=== PATIENT | male | born 1960 | race Caucasian/White ===

== ENCOUNTER → 2017-09-02 | Outpatient (CLI) | payer BC ==
--- NOTE | 2017-09-02 13:05 | XR ---
EXAMINATION TYPE: XR knee complete LT DATE OF EXAM: 09/02/2017 CLINICAL HISTORY: Nontraumatic increasing left knee pain TECHNIQUE: Three views of the left knee are obtained. COMPARISON: None. FINDINGS: There is no acute fracture/dislocation evident in left knee. There is tricompartmental mary kate nt space narrowing, medial compartment tibial plateau sclerosis, and tricompartmental osteophytes. Fa marry is incidentally noted. The overlying soft tissue appears unremarkable. IMPRESSION: There is no acute fracture or dislocation in the left knee. Moderate to severe tricompar tmental arthropathy.
== END ==
LOC: RADXRYALE 09:37
PROVIDERS: ATTEND Physician Assistant
DX: M17.12 Unilateral primary osteoarthritis, left knee (principal)

== ENCOUNTER → 2020-02-18 | Outpatient (CLI) | payer OTHER | END | disposition home or self-care (01) | LOC: LABWHC1 10:01 | PROVIDERS: ATTEND Physician Assistant | DX: Z20.828 Contact with and (suspected) exposure to other viral communicable diseases (principal) | CPT/HCPCS: U0003; C9803 ==

== ENCOUNTER → 2023-03-25 | Outpatient (CLI) | payer BC ==
[2023-03-25 09:09] LABS: Partial Thromboplastin Time 24.9 sec (22.0-30.0); Prothrombin Time 11.3 sec (10.0-12.5)
[2023-03-25 15:45] LABS: Basophils # (A) 0.06 X 10*3/uL (0.00-0.10); Basophils % (A) 0.6 %; Eosinophils # (A) 0.28 X 10*3/uL (0.04-0.35); HCT 45.1 % (39.6-50.0); HGB 14.9 g/dL (13.0-17.0); Lymphocytes # (A) 2.89 X 10*3/uL (0.90-5.00); Lymphocytes % (A) 30.8 %; MCH 30.6 pg (27.0-32.0); MCV 92.6 FL (80.0-97.0); Mean Platelet Volume 11.4 FL (9.5-12.2); Monocytes # (A) 0.75 X 10*3/uL (0.20-1.00); NRBC Per 100 WBC 0 X 10*3/uL (0.00-0.01); Neutrophils # (A) 5.38 X 10*3/uL (1.80-7.70); Neutrophils % (A) 57.4 %; Platelet Count 186 X 10*3/uL (140-440); RBC 4.87 X 10*6/uL (4.40-5.60); RDW 12.6 % (11.5-14.5); WBC 9.38 X 10*3/uL (4.50-10.00)
[2023-03-25 16:05] LABS: ALT 29 U/L (10-49); AST 21 U/L (14-35); Albumin 4.4 g/dL (3.8-4.9); Albumin/Globulin Ratio 1.63 Ratio (1.60-3.17); Alkaline Phosphatase 89 U/L (41-126); BUN/Creat Ratio 21.25 Ratio (12.00-20.00); Calcium 9.7 mg/dL (8.7-10.3); Chloride 102 mmol/L (96-109); Globulin 2.7 g/dL (1.6-3.3); Glucose 149 mg/dL (70-110); Potassium 4.7 mmol/L (3.5-5.5); Sodium 141 mmol/L (135-145); Total Bilirubin 0.7 mg/dL (0.3-1.2); Total Protein 7.1 g/dL (6.2-8.2)
[2023-03-25 16:06] LABS: Appearance,Urine Turbid (Clear); Bilirubin,Urine Negative (Negative); Blood,Urine Trace (Negative); Color,Urine Yellow (Yellow); Ketones,Urine Trace (Negative); Nitrite,Urine Negative (Negative); Specific Gravity,Urine 1.024 (1.001-1.030); Urobilinogen,Urine 0.2 E.U./DL
[2023-03-25 16:15] LABS: Bacteria,Urine None Seen (None Seen)
== END | disposition home or self-care (01) ==
LOC: LABPAT 07:22
PROVIDERS: ATTEND Orthopaedic Surgery
DX: Z01.812 Encounter for preprocedural laboratory examination (principal)
CPT/HCPCS: 80053; 81001; 85025; 85610; 85730

== ENCOUNTER → 2023-03-30 | Outpatient (CLI) | payer BC | END | disposition home or self-care (01) | LOC: LABPAT 15:01 | PROVIDERS: ATTEND Orthopaedic Surgery | DX: Z01.812 Encounter for preprocedural laboratory examination (principal); M16.11 Unilateral primary osteoarthritis, right hip | CPT/HCPCS: 36415; 86850; 86900; 86901; 87070 ==

== ENCOUNTER 2023-04-04 05:33 | Observation (INO) | payer BC ==
[~2023-04-04 05:33] MED LIST: ACETAMINOPHEN TAB 500 MG TAB PO PRN; DEXAMETHASONE SOD PHOSPHATE 4 MG/ML 1 ML VIAL IV ONE; GABAPENTIN 300 MG CAP PO PRN; LIDOCAINE 1% (10MG/ML) FOR IV START INTRADERMA PRN; MELOXICAM 7.5 MG TAB PO PRN; ONDANSETRON 4 MG/2 ML VIAL IVP ONE; TRANEXAMIC 1,000 MG/100ML-NACL 1,000 MG in SALINE 1 100ML.BAG IVPB PRN; ceFAZolin 3 GM in SODIUM CHLORIDE 0.9% 100 ML IVPB PRN
[2023-04-04] MEDS: LACTATED RINGERS 1,000 ML IV SCH (06:25)
[2023-04-04 06:34] LABS: Glucose,Whole Blood 176 mg/dL (70-110)
[2023-04-04] MEDS ORDERED: MIDAZOLAM 2 MG/2 ML VIAL IVP ONE (06:48)
[2023-04-04] MEDS ORDERED: MIDAZOLAM 2 MG/2 ML VIAL ONE (06:50)
[2023-04-04] MEDS ORDERED: GLYCOPYRROLATE 0.2 MG/ML 2 ML VIAL ONE (06:50)
[2023-04-04] MEDS ORDERED: TRANEXAMIC 1,000 MG/100ML-NACL PREMIX BAG ONE (06:50)
[2023-04-04] MEDS ORDERED: PROPOFOL 10 MG/ML 20 ML VIAL IV ONE (06:50)
[2023-04-04] MEDS ORDERED: ROPIVACAINE 5 MG/ML 30 ML VIAL ONE (06:50)
[2023-04-04] MEDS ORDERED: ePHEDrine 50 MG/ML 1 ML VIAL ONE (06:50)
[2023-04-04] MEDS ORDERED: PHENYLEPHRINE 10 MG/ML VIAL ONE (06:50)
[2023-04-04] MEDS ORDERED: fentaNYL (PF) 50 MCG/ML 2 ML AMP ONE (06:50)
[2023-04-04] MEDS ORDERED: fentaNYL (PF) 50 MCG/ML 2 ML AMP IV PRN (07:00)
[2023-04-04] MEDS ORDERED: MIDAZOLAM 2 MG/2 ML VIAL IV PRN (07:00)
[2023-04-04] MEDS ORDERED: HYDROmorphone 0.5 MG/0.5 ML SYRINGE IVP PRN ×3 (07:00→09:42)
[2023-04-04] MEDS ORDERED: ceFAZolin 1,000 MG in SODIUM CHLORIDE 0.9% 1,000 ML IRRIGATION ONE (07:02)
[2023-04-04] MEDS ORDERED: LACTATED RINGERS 1,000 ML IV ONE (08:35)
[2023-04-04] MEDS ORDERED: ROPIVACAINE 5 MG/ML 30 ML VIAL MISCELLANE ONE ×2 (08:50→09:04)
--- NOTE | 2023-04-04 09:15 | P.OP ---
Date of Procedure: 04/04/23 Preoperative Diagnosis: Severe osteoarthritis right hip Postoperative Diagnosis: Severe osteoarthritis right hip Procedure(s) Performed: Right total hip arthroplasty with a direct anterior approach Implants: [employer] Polarstem lateral size 8 [employer] R3, 3 hole hemispherical acetabular shell, 56 mm [employer] Reflection 6.5 mm cancellus screw, 20 mm, 25 mm [employer] R3, XLPE 20 acetabular liner [employer] Oxinium femoral head 36 mm, +12 All components were press-fit. The articulation is Oxinium on polyethylene. Anesthesia: spinal Surgeon: Mario Rothman Copywriter #1: Paola Rogers Estimated Blood Loss (ml): 800 Pathology: none sent Condition: stable Disposition: PACU Indications for Procedure: After failure of conservative treatment we discussed the surgical and nonsurgical treatment options at length. Patient wishes to proceed with a total hip arthroplasty with a direct anterior approach. Complications specific to this procedure were discussed at length, including but not limited to infection, leg length discrepancy, dislocation, nerve injury, and fracture. Covid-19 was also discussed at length with the patient, and they are aware of the current policies and procedures. The patient was given the option of delaying surgery, but they elect to proceed knowing these risks. Patient is aware of all these complications and informed consent was obtained Operative Findings: The operative findings are consistent with severe osteoarthritis of the right hip Description of Procedure: The patient was seen and evaluated in the preoperative area and the consent was reviewed. The operative site was marked with a skin marker. The patient verified the procedure and operative site. A JENNIFER block was placed by an esthesia in the preoperative area. The patient was then brought to the operating room and given preoperative antibiotics intravenously. 1 g of Tranexamic acid was also given intravenously. A spinal anesthetic was administered by the anesthesia department. The patient was then placed on the [place] table with the bony prominences well-padded. The hip area was then prepped with a ChloraPrep solution and draped in the usual sterile fashion. A universal timeout was then performed, which confirmed the patient's name, surgical site, ALLERGIES, and procedure being performed on the consent. Next t he incision site was located at 1 cm distal and 4 cm lateral to the anterior superior iliac spine. The skin and subcutaneous tissues were sharply incised. Incision was carefully dissected down to the fascia overlying the tensor fascia lan muscle. This fascia was then incised in line with the muscle fibers. Care was taken to stay laterally in order to avoid injuring the lateral femoral cutaneous nerve. Next, using blunt finger dissection, the tensor fascia lan muscle was dissected off its investing fascia. The muscle was then carefully retracted laterally with a cobra retractor over the lateral neck of the femur. Next, the circumflex vessels were identified and cauterized using the Aquamantis device. The anterior hip capsule was then exposed. The capsule was then opened and an inverted T fashion. The retractors were then placed intracapsularly. The retractors were maintained intracapsular throughout the procedure. The proximal femur was then visualized. Fluoroscopic x-rays were then taken in order to evaluate the preoperative leg lengths. A small amount of traction was placed on the leg. The femoral neck was then osteotomized at the appropriate level above the lesser trochanter. A small wedge of bone was then removed from the remaining femoral head. Next, using a corkscrew the femoral head was removed from the acetabulum. On gross visual inspection, the femoral head had complete loss of articular cartilage and multiple periarticular osteophytes. The femoral head was then measured. Attention was then turned to the acetabulum. The acetabulum was exposed and any remaining labrum was excised. Sequential reaming of the acetabulum was performed using fluoroscopic guidance until there was a good bed of bleeding cancellus bone. When the appropriate size was reached, a trial was then placed. The position and fit of the trial was checked with fluoroscopy. The trial was then removed. Then, using fluoroscopic guidance, the final implant was impacted at 20 of anteversion and 40 of abduction, and fully seated in the acetabulum. 2 screws were then placed in the acetabulum. Again fluoroscopy was used to check position of the screws. Next, the liner was then impacted, with a 20 elevated liner located in the anterior superior quadrant. Component locking was confirmed. Attention was then directed to the femur. With the aid of the [place] table, the femur was externally rotated to approximately 130, extended, and adducted under the opposite leg. A side hook was then placed under the proximal femur, and the side hook elevator was used to elevate the proximal femur while releasing the capsule. Retractors were then placed. A capsular release was performed, as well as a release of the conjoined tendon, which afforded excellent visualizat ion of the proximal femur. Next, a box osteotome was used to lateralize the proximal femur. A sales and merchandising representative was then used to locate the femoral canal. Sequential broaching was then performed with appropriate size which afforded excellent fixation in the proximal femur. A trial was then placed with appropriate head and neck, and the hip was gently reduced with the aid of the [place] table. Fluoroscopy was then used to check position of the components, as well as to evaluate the leg lengths and offset. The leg lengths and offset were measured as closely as possible to ensure stability of the hip. The hip was then gently dislocated and the trials were then removed. Final implants were then impacted and the hip was again reduced. Final fluoroscopic x-rays confirmed that the components were in anatomic position. The leg lengths and offset were measured and were found to coincide with the trial measurements. The hip was also taken through range of motion, and found to be stable. The hip was then copiously irrigated with antibiotic solution with pulsatile lavage. The hip was then irrigated with Irrisept solution. The soft tissues were then injected with a ropivacaine solution. A second dose of 1 g of Tranexamic acid was also given intravenously. The fascia was then closed with 2-0 strata fix suture. The subcutaneous tissue was closed with 3-0 Vicryl. The subcuticular tissue was closed with 3-0 strata fix suture. The skin was then closed with Exofin skin glue. After the glue and dried, and Optifoam silver impregnated dressing was applied. The patient was then transferred to the recovery room in stable condition. The credentialing assistant JAKE Gonzales was required due to the complexity of surgery, and the need for skilled surgical first assistant for positioning, draping, exposure, retraction, and closure of the wound.
[2023-04-04] MEDS ORDERED: NALOXONE 0.4 MG/ML 1 ML VIAL IV PRN (09:42)
[2023-04-04] MEDS ORDERED: MAGNESIUM HYDROXIDE 2,400 MG/30 ML CUP PO PRN (09:42)
[2023-04-04] MEDS ORDERED: ONDANSETRON 4 MG/2 ML VIAL IVP PRN (09:42)
[2023-04-04] MEDS ORDERED: HYDROcodone/APAP 7.5-325MG 1 EACH TAB PO PRN (09:47)
[2023-04-04 10:06] LABS: Glucose,Whole Blood 188 mg/dL (70-110)
--- NOTE | 2023-04-04 10:36 | XR ---
EXAMINATION TYPE: XR Hip Limited RT DATE OF EXAM: 04/04/2023 10:08 AM CLINICAL INDICATION:Male, 62 years old with history of Status post hip surgery, assess surgical align ment; [facility] COMPARISON: None. TECHNIQUE AND FINDINGS: Single frontal view of the right hip. A total hip arthroplasty is in place, appears intact and normal ly aligned. No abnormal perihardware lucency or fracture. No significant malalignment. Soft tissues s how no unexpected radiopaque foreign body. Small amount of regional soft tissue gas is present, not u nexpected postoperative. IMPRESSION: Status post placement of total hip arthroplasty. No evidence of complication.
--- NOTE | 2023-04-04 11:22 | XR ---
EXAMINATION TYPE: XR Hip Limited RT DATE OF EXAM: 04/04/2023 9:28 AM CLINICAL INDICATION:Male, 62 years old with history of RIGHT HIP OA; [facility] COMPARISON: None. TECHNIQUE: Fluoroscopic spot views were obtained intraoperatively during placement of total hip arthr oplasty and saved to PACS. Total pedal time 1 minute 45 seconds. The total DAP was 10.729 Gycm2. Ple ase refer to operative note for full details. IMPRESSION: Documentation of fluoroscopy.
--- NOTE | 2023-04-04 11:39 | FL ---
Fluoroscopy INDICATION: Pain FINDINGS: Fluoroscopy time: 105 seconds. Total dose area product (DAP) in uGy*m?, mGy*cm? (or similar): 10.729 Images obtained: 0. IMPRESSION: 1. Documentation of fluoroscopy.
[2023-04-04] MEDS: HYDROcodone/APAP 7.5-325MG 1 EACH TAB PO PRN ×2 (11:54→17:47)
[2023-04-04 11:55] LABS: Glucose,Whole Blood 191 mg/dL (70-110)
[2023-04-04 12:42] VITALS: RESP 18
[2023-04-04] MEDS ORDERED: DEXTROSE 50% SYRINGE 50 ML IVP PRN ×2 (13:05)
[2023-04-04] MEDS: HYDROmorphone 1 MG/ML 1 ML SYRINGE IVP PRN ×3 (13:25→21:08)
--- NOTE | 2023-04-04 13:31 | P.CONS ---
History of Present Illness - Reason for Consult Consult date: 04/04/23 Medical Management Requesting physician: Mario Rothman - History of Present Illness History of Presenting Illness: Patient is a pleasant 62-year-old male with a past medical history of hyperlipidemia, type 2 diabetes mellitus, anxiety and osteoarthritis. He is currently admitted under orthopedic surgery team status post Right total hip arthroplasty with a direct anterior approach. Surgical procedure was completed by Dr. Rothman secondary to severe osteoarthritis of right hip. We have been consulted for medical management throughout patient's hospitalization. Patient seen and fully evaluated at bedside. He appeared to be resting comfortably and talking with at bedside. Patient reports mild to moderate postoperative pain and right hip and is currently being medicated by RN for these complaints. He reports tolerating oral intake and denies having any postoperative nausea or vomiting. Patient continues to have mild urinary retention and has not yet urinated since surgical procedure was completed. Discussed with patient, patient's , and RN at bedside need for close monitoring of this and patient was informed that he may need straight catheteriz ation if he continues to have postoperative urinary retention. Patient verbalized understanding. He denied having any other complaints at this time including headache, lightheadedness, dizziness, chest pain, palpitations, shortness of breath, or experiencing any numbness/tingling/weakness in his extremities. Patient reports numbness/tingling that he initially felt postoperative has completely resolved and states "I am back to feeling everything". Patient denies having any other further needs or complaints at this time. Review of systems: Pertinent positives and negatives as discussed in HPI, a complete review of systems was performed and all other systems are negative. Physical exam: Vital signs reviewed and stable. General: Nontoxic, no distress and appears stated age. Derm: Skin warm and dry, normal coloration for ethnicity. Head: Atraumatic, normocephalic and symmetric. Eyes: EOMs intact, no lid lag, and anicteric sclera Mouth: no lip lesions, mucus membranes moist Cardiovascular: regular rate and rhythm with normal S1S2, no murmur, positive posterior tibial pulses bilaterally, and cap refill < 2 seconds. Lungs: Respirations even, regular, and unlabored on room air. Lungs CTA bilaterally, no rhonchi, no rales, no wheezing, and no accessory muscle usage. Abdominal: soft, nontender to palpation, no guarding, no appreciable organomegaly Ext: No gross muscle atrophy, no edema, no contractures. Movement and sensation intact. Postoperative dressing clean dry and intact. Neuro: Speech clear, face symmetrical and CN II-XII grossly intact with no noted focal neuro deficits Psych: Alert and oriented to person, place, time, and situation. Appropriate and pleasant affect. Assessment and Plan of Care: Diabetes mellitus with hyperglycemia Blood glucose 191. At this time we will hold Actos, glipizide, and Glucophage. Patient placed on glycemic protocol with NovoLog sliding scale to maintain tight glycemic control during postoperative period. We will obtain a hemoglobin A1c. Hyperlipidemia Patient to continue daily medication regimen with atorvastatin 80 mg daily. Anxiety Patient to continue with doxepin 25 mg nightly Osteoarthritis Status post right total hip arthroplasty Management per primary admitting orthopedic surgery team including DVT prophylaxis, pain management, wound/dressing care, weightbearing, and PT/OT. Patient currently on DVT prophylaxis with aspirin 3 and 25 mg twice daily. Vital signs reviewed and stable. Blood pressure 121/69, heart rate 63, respiratory rate 18, temperature 97.8F with SpO2 of 99% on room air. Thank you for allowing us to participate in the care of this pleasant patient. Do not hesitate to contact us with questions. Someone can be reached [facility] all hours of the day at [phone] or via [employer]. Patient was seen independently by Nurse Practitioner. This document was prepared using eCert dictation software. Please allow for errors in set up mechanic stamping machines while rare they do occur. Sohan Villar NP rendered care for this patient independently, reviewed the findings and plan as documented in the note above. I did not physically speak with or examine the patient on this date. Past Medical History Past Medical History: Diabetes Mellitus, Osteoarthritis (OA) Additional Past Medical History / Comment(s): Seasonal allergies. History of Any Multi-Drug Resistant Organisms: None Reported Additional Past Surgical History / Comment(s): Bilateral rotator cuff repairs, bilateral eye cataract removals/lens implants. Past Anesthesia/Blood Transfusion Reactions: No Reported Reaction Smoking Status: Never smoker - Past Family History Father Additional Family Medical History / Comment(s): at 83yrs. Mother Family Medical History: No Reported History Additional Family Medical History / Comment(s): Mother is 93 yrs old. Back problems/leg problems. Medications and Allergies Home Medications Medication Instructions Recorded Confirmed Type Atorvastatin [Lipitor] 80 mg PO QAM 03/30/23 03/30/23 History Doxepin [SINEquan] 25 mg PO HS 03/30/23 03/30/23 History Gabapentin [Neurontin] 300 mg PO QAM 03/30/23 03/30/23 History Ibuprofen [Motrin Ib] 200 mg PO Q8H PRN 03/30/23 03/30/23 History Pioglitazone [Actos] 45 mg PO QAM 03/30/23 03/30/23 History [employer] Allergy Medication 1 tab PO DAILY PRN 03/30/23 03/30/23 History glipiZIDE 10 mg PO QAM 03/30/23 03/30/23 History metFORMIN HCL [Glucophage] 500 mg PO QAM 03/30/23 03/30/23 History Aspirin 325 mg PO BID #60 tab 04/04/23 Rx HYDROcodone/APAP 7.5-325MG [[place] 1 - 2 tab PO Q6H PRN #32 tab 04/04/23 Rx 7.5-325] Sennosides [Senokot] 2 tab PO DAILY PRN #60 tablet 04/04/23 Rx Allergies Allergy/AdvReac Type Severity Reaction Status Date / Time No Known Allergies Allergy Verified 03/30/23 10:37 Physical Exam Osteopathic Statement: *. No significant issues noted on an osteopathic structural exam other than those noted in the History and Physical/Consult. Vitals: Vital Signs Temp Pulse Pulse Resp BP BP BP 04/04/23 11:40 97.8 F 68 18 113/67 04/04/23 10:45 61 16 143/72 04/04/23 10:30 69 16 142/69 04/04/23 10:15 61 16 122/62 04/04/23 10:00 71 17 115/60 04/04/23 09:45 73 16 123/67 04/04/23 09:34 97.2 F L 85 16 130/96 04/04/23 06:55 68 16 162/82 04/04/23 06:20 97.1 F L 82 16 156/78 Pulse Ox 04/04/23 11:40 99 04/04/23 10:45 98 04/04/23 10:30 98 04/04/23 10:15 99 04/04/23 10:00 96 04/04/23 09:45 99 04/04/23 09:34 99 04/04/23 06:55 94 L 04/04/23 06:20 97 Intake and Output 04/03/23 04/04/23 04/04/23 22:59 06:59 14:59 Intake Total 400 1201 Output Total 800 Balance 400 401 Intake: IV 400 1201 Output: Estimated Blood Loss 800 Results Labs: Abnormal Lab Results - Last 24 Hours (Table) 04/04/23 04/04/23 04/04/23 Range/Units 06:26 10:05 11:53 POC Glucose (mg/dL) 176 H 188 H 191 H (70-110) mg/dL
[2023-04-04] MEDS: ceFAZolin 3 GM in SODIUM CHLORIDE 0.9% 100 ML IVPB SCH ×2 (14:21→23:19)
[2023-04-04] MEDS: SODIUM CHLORIDE 0.9% 1,000 ML IV SCH ×2 (16:02→23:28)
[2023-04-04 16:38] LABS: Glucose,Whole Blood 227 mg/dL (70-110)
[2023-04-04] MEDS: INSULIN ASPART (NovoLOG) 100 UNIT/ML VIAL SQ SCH ×2 (18:05→21:08)
[2023-04-04 20:47] LABS: Glucose,Whole Blood 217 mg/dL (70-110)
[2023-04-04] MEDS ORDERED: SENNOSIDES-DOCUSATE SODIUM 1 EACH TAB PO SCH (21:00)
[2023-04-04] MEDS ORDERED: DOXEPIN 25 MG CAP PO SCH (21:00)
[2023-04-04] MEDS: ASPIRIN 325 MG TAB PO SCH (21:08)
[2023-04-05] MEDS: HYDROmorphone 1 MG/ML 1 ML SYRINGE IVP PRN (03:35)
[2023-04-05] MEDS: LACTATED RINGERS 1,000 ML IV SCH (05:33)
[2023-04-05 06:18] LABS: Glucose,Whole Blood 225 mg/dL (70-110)
[2023-04-05] MEDS: INSULIN ASPART (NovoLOG) 100 UNIT/ML VIAL SQ SCH ×2 (06:47→12:59)
[2023-04-05] MEDS: HYDROcodone/APAP 7.5-325MG 1 EACH TAB PO PRN ×2 (06:50→12:59)
[2023-04-05 08:31] LABS: HCT 38.1 % (39.6-50.0); HGB 12.8 g/dL (13.0-17.0); MCH 30.9 pg (27.0-32.0); MCHC 33.6 g/dL (32.0-37.0); Mean Platelet Volume 11.7 FL (9.5-12.2); NRBC Per 100 WBC 0 X 10*3/uL (0.00-0.01); Platelet Count 152 X 10*3/uL (140-440); RBC 4.14 X 10*6/uL (4.40-5.60); RDW 12.7 % (11.5-14.5)
[2023-04-05] MEDS ORDERED: KETOROLAC 15 MG/ML 1 ML VIAL IVP PRN (08:42)
[2023-04-05] MEDS ORDERED: CYCLOBENZAPRINE 10 MG TAB PO PRN (08:42)
[2023-04-05] MEDS ORDERED: ATORVASTATIN 80 MG TAB PO SCH (09:00)
[2023-04-05] MEDS ORDERED: GABAPENTIN 300 MG CAP PO SCH (09:00)
[2023-04-05 09:11] VITALS: BP 151/74; PULSE 85; TEMP 99.7
[2023-04-05 09:18] LABS: Magnesium 1.4 mg/dL (1.5-2.4)
[2023-04-05 09:21] LABS: ALT 22 U/L (10-49); AST 32 U/L (14-35); Albumin 3.7 g/dL (3.8-4.9); Albumin/Globulin Ratio 1.54 Ratio (1.60-3.17); Alkaline Phosphatase 63 U/L (41-126); Blood Urea Nitrogen 14.4 mg/dL (9.0-27.0); Calcium 8.3 mg/dL (8.7-10.3); Carbon Dioxide 23.9 mmol/L (21.6-31.8); Chloride 98 mmol/L (96-109); Globulin 2.4 g/dL (1.6-3.3); Glucose 198 mg/dL (70-110); Potassium 3.8 mmol/L (3.5-5.5); Sodium 134 mmol/L (135-145); Total Bilirubin 0.9 mg/dL (0.3-1.2); Total Protein 6.1 g/dL (6.2-8.2)
[2023-04-05] MEDS ORDERED: MAGNESIUM OXIDE 400 MG TAB PO STA (09:55)
[2023-04-05] MEDS: ASPIRIN 325 MG TAB PO SCH (09:57)
[2023-04-05 10:31] LABS: Basophils # (A) 0.05 X 10*3/uL (0.00-0.10); Basophils % (A) 0.4 %; Eosinophils # (A) 0.03 X 10*3/uL (0.04-0.35); Eosinophils % (A) 0.2 %; Lymphocytes # (A) 2.22 X 10*3/uL (0.90-5.00); Lymphocytes % (A) 16.3 %; Monocytes # (A) 1.58 X 10*3/uL (0.20-1.00); Monocytes % (A) 11.6 %; Neutrophils # (A) 9.65 X 10*3/uL (1.80-7.70); RBC Morphology Normal (Normal)
--- NOTE | 2023-04-05 10:43 | P.DS ---
Providers Expected date of discharge: 04/05/23 Attending physician: Mario Rothman Consults: 04/04/23 09:42 Consult Physician Routine Consulting Provider: Mario Nicole Consult Reason/Comments: medical management Do you want consulting provider notified?: Yes 04/04/23 13:13 Consult Physician Routine Consulting Provider: Deborah Umana Consult Reason/Comments: medical managment. Do you want consulting provider notified?: Already Contacted Primary care physician: Mario Nicole - Discharge Diagnosis(es) (1) Osteoarthritis of right hip Current Visit: Yes Status: Acute (2) S/P total right hip arthroplasty Current Visit: Yes Status: Acute Hospital Course: This is a 62-year-old male with known history of degenerative arthritis of the right hip. The patient presented for evaluation as an outpatient. After discussion and consideration patient elects to proceed with total hip arthroplasty. The patient is seen preoperatively by Dr. Rothman and medically cleared for surgery by their primary care physician. Patient is admitted to [facility] on 01/03/2023 for total hip arthroplasty. The procedure is performed without complication or sequelae. The patient is doing well postoperatively. Labs and vital signs are stable on day of discharge. On day of discharge patient's hip incision is healing well. There is minimal erythema. There is no drainage noted at this time. There is minimal soft tissu e swelling to the hip and thigh. Patient has full foot and ankle motion without difficulty or pain. Calf is soft and nontender to palpation. Neurovascular status to the right lower extremity is intact. Patient is discharged home in good condition. Please see med rec for accurate list of home medications. Plan - Discharge Summary Discharge Rx Participant: Yes New Discharge Prescriptions: New HYDROcodone/APAP 7.5-325MG [[place] 7.5-325] 1 - 2 tab PO Q6H PRN #32 tab PRN Reason: Pain Sennosides [Senokot] 2 tab PO DAILY PRN #60 tablet PRN Reason: Constipation Aspirin 325 mg PO BID #60 tab Cyclobenzaprine [Flexeril] 10 mg PO TID 7 Days tablet Ketorolac [Toradol] 10 mg PO Q6HR #12 tab No Action metFORMIN HCL [Glucophage] 500 mg PO QAM glipiZIDE 10 mg PO QAM Pioglitazone [Actos] 45 mg PO QAM Atorvastatin [Lipitor] 80 mg PO QAM Ibuprofen [Motrin Ib] 200 mg PO Q8H PRN PRN Reason: Pain Gabapentin [Neurontin] 300 mg PO QAM Doxepin [SINEquan] 25 mg PO HS [employer] Allergy Medication 1 tab PO DAILY PRN PRN Reason: Allergy Symptoms Discharge Medication List Atorvastatin [Lipitor] 80 mg PO QAM 03/30/23 [History] Doxepin [SINEquan] 25 mg PO HS 03/30/23 [History] Gabapentin [Neurontin] 300 mg PO QAM 03/30/23 [History] Ibuprofen [Motrin Ib] 200 mg PO Q8H PRN 03/30/23 [History] Pioglitazone [Actos] 45 mg PO QAM 03/30/23 [History] [employer] Allergy Medication 1 tab PO DAILY PRN 03/30/23 [History] glipiZIDE 10 mg PO QAM 03/30/23 [History] metFORMIN HCL [Glucophage] 500 mg PO QAM 03/30/23 [History] Aspirin 325 mg PO BID #60 tab 04/04/23 [Rx] HYDROcodone/APAP 7.5-325MG [[place] 7.5-325] 1 - 2 tab PO Q6H PRN #32 tab 04/04/23 [Rx] Sennosides [Senokot] 2 tab PO DAILY PRN #60 tablet 04/04/23 [Rx] Cyclobenzaprine [Flexeril] 10 mg PO TID 7 Days tablet 04/05/23 [Rx] Ketorolac [Toradol] 10 mg PO Q6HR #12 tab 04/05/23 [Rx] Follow up Appointment(s)/Referral(s): [facility] [[facility] - 1-2 Days ([facility] will call you to schedule your in home physical therapy visits. ) Mario Rothman DO [Doctor of Osteopathic Medicine] - 04/13/23 9:00 am Activity/Diet/Wound Care/Special Instructions: Weightbearing as tolerated with walker. Leave dressing intact. Dressing may be removed by home care nurse or by patient in 7 days. Then change dressing twice daily until follow up. May shower with initial dressing intact and after removal. If dressing become saturated, please remove. Please take aspirin 325mg twice daily for 30 days to prevent blood clots. Recommend use of compression stockings daily until follow up to help prevent swelling and blood clots. May remove at night before sleeping. Please follow-up with [facility] in 2 weeks and call with any questions or concerns, . Discharge Disposition: HOME WITH HOME HEALTH SERVICES
[2023-04-05 10:58] LABS: Glucose,Whole Blood 215 mg/dL (70-110)
--- NOTE | 2023-04-05 11:44 | P.PN ---
Subjective Progress Note Date: 04/05/23 Subjective: Patient seen and examined at bedside. No acute events overnight. Still c omplaining of some right hip pain. Denies any other complaints. Pertinent positives and negatives as discussed above, a complete review of systems was performed and all other systems are negative. Vitals Signs Reviewed. General: nontoxic, no distress, appears at stated age Derm: warm, dry, dressing clean dry, intact Head: atraumatic, normocephalic, symmetric Eyes: EOMI, no lid lag, anicteric sclera Mouth: no lip lesion, mucus membranes moist Cardiovascular: S1S2 reg, no murmur Lungs: CTA bilateral, no rhonchi, no rales , no accessory muscle use Abdominal: soft, nontender to palpation, no guarding, no appreciable organomegaly Ext: no gross muscle atrophy, no edema, no contractures Neuro: CN II-XI grossly intact, no focal neuro deficits Psych: Alert, oriented, appropriate affect Data Reviewed Today: Pertinent Labs: WBC 13.6, hemoglobin 12.8, creatinine 0.8, magnesium 1.4, blood sugars range between 198-225 Imaging: No new imaging Assessment and Plan: Diabetes mellitus with hyperglycemia Dyslipidemia Anxiety Osteoarthritis Status post right total hip arthroplasty Leukocytosis, reactive anticipated outcome of surgery Hypomagnesemia -On sliding scale insulin, monitor for hypoglycemia -Patient given magnesium oxide 800 mg once oral -Rest of the home medications reviewed and reconciled -Pain medication and DVT prophylaxis per orthopedic surgery -Patient is medically optimized for discharge home Thank you for allowing us to participate in the care of this pleasant patient. Do not hesitate to contact us with questions. Someone can be reached from the [facility] hospitalist group all hours of the day at [phone] or via perfect serve. Objective - Vital Signs Vital signs: Vital Signs Temp 99.7 F H 04/05/23 07:15 Pulse 85 04/05/23 09:57 Resp 18 04/05/23 09:57 BP 151/74 04/05/23 07:15 Pulse Ox 96 04/05/23 07:15 FiO2 Intake & Output 04/04/23 04/05/23 04/05/23 18:59 06:59 18:59 Intake Total 1201 Output Total 800 Balance 401 Weight 136.078 kg Intake: IV 1201 Output: Estimated Blood Loss 800 Other: Voiding Method Toilet # Voids 1 2 - Labs CBC & Chem 7: 04/05/23 04:06 04/05/23 04:06 Labs: Abnormal Lab Results - Last 24 Hours (Table) 04/04/23 04/04/23 04/04/23 Range/Units 11:53 16:37 20:46 WBC (4.50-10.00) X 10*3/uL RBC (4.40-5.60) X 10*6/uL Hgb (13.0-17.0) g/dL Hct (39.6-50.0) % Immature Gran # (0.00-0.04) X 10*3/uL Neutrophils # (1.80-7.70) X 10*3/uL Monocytes # (0.20-1.00) X 10*3/uL Eosinophils # (0.04-0.35) X 10*3/uL Sodium (135-145) mmol/L Anion Gap (4.00-12.00) mmol/L Glucose (70-110) mg/dL POC Glucose (mg/dL) 191 H 227 H 217 H (70-110) mg/dL Hemoglobin A1c (<=6.0) % Calcium (8.7-10.3) mg/dL Magnesium (1.5-2.4) mg/dL Total Protein (6.2-8.2) g/dL Albumin (3.8-4.9) g/dL Albumin/Globulin Ratio (1.60-3.17) Ratio 04/05/23 04/05/23 04/05/23 Range/Units 04:06 04:06 04:06 WBC 13.60 H (4.50-10.00) X 10*3/uL RBC 4.14 L (4.40-5.60) X 10*6/uL Hgb 12.8 L (13.0-17.0) g/dL Hct 38.1 L (39.6-50.0) % Immature Gran # 0.07 H (0.00-0.04) X 10*3/uL Neutrophils # 9.65 H (1.80-7.70) X 10*3/uL Monocytes # 1.58 H (0.20-1.00) X 10*3/uL Eosinophils # 0.03 L (0.04-0.35) X 10*3/uL Sodium 134 L (135-145) mmol/L Anion Gap 12.10 H (4.00-12.00) mmol/L Glucose 198 H (70-110) mg/dL POC Glucose (mg/dL) (70-110) mg/dL Hemoglobin A1c 7.1 H (<=6.0) % Calcium 8.3 L (8.7-10.3) mg/dL Magnesium 1.4 L (1.5-2.4) mg/dL Total Protein 6.1 L (6.2-8.2) g/dL Albumin 3.7 L (3.8-4.9) g/dL Albumin/Globulin Ratio 1.54 L (1.60-3.17) Ratio 04/05/23 04/05/23 Range/Units 06:17 10:56 WBC (4.50-10.00) X 10*3/uL RBC (4.40-5.60) X 10*6/uL Hgb (13.0-17.0) g/dL Hct (39.6-50.0) % Immature Gran # (0.00-0.04) X 10*3/uL Neutrophils # (1.80-7.70) X 10*3/uL Monocytes # (0.20-1.00) X 10*3/uL Eosinophils # (0.04-0.35) X 10*3/uL Sodium (135-145) mmol/L Anion Gap (4.00-12.00) mmol/L Glucose (70-110) mg/dL POC Glucose (mg/dL) 225 H 215 H (70-110) mg/dL Hemoglobin A1c (<=6.0) % Calcium (8.7-10.3) mg/dL Magnesium (1.5-2.4) mg/dL Total Protein (6.2-8.2) g/dL Albumin (3.8-4.9) g/dL Albumin/Globulin Ratio (1.60-3.17) Ratio
--- NOTE | 2023-04-08 10:53 | P.ANPRN ---
Procedure Note - Anesthesia - Nerve Block Performed Right Von Single Time Out Performed: Yes ([id number]) Date of Procedure: 04/04/23 Procedure Start Time: 06:48 Procedure Stop Time: 06:50 Location of Patient: PreOp Indication: Acute Post-Operative Pain, Requested by Surgeon Specifically requested for management of pain by DrLeonila: Mario Rothman Sedation Type: Sedate with meaningful contact maintained Preparation: Sterile Prep Position: Supine Catheter: None Needle Types: Pajunk Needle Gauge: 21 Ultrasound used to visualize needle placement: Yes Ultrasound used to observe medication spread: Yes Injectate: 0.5% Ropivacaine (see comment for volume) (30cc) Blood Aspirated: No Pain Paresthesia on Injection Noted: No Resistance on Injection: Normal Image Stored and Saved: Yes Events: Uneventful and Well Tolerated
== END 2023-04-05 13:32 | disposition home health service (06) ==
LOC: OR 05:33 → 4SSUR 05:34
PROVIDERS: ADMIT Orthopaedic Surgery; ATTEND Orthopaedic Surgery
DX: M16.11 Unilateral primary osteoarthritis, right hip (principal); M25.751 Osteophyte, right hip; G89.18 Other acute postprocedural pain; E11.65 Type 2 diabetes mellitus with hyperglycemia; E78.5 Hyperlipidemia, unspecified; F41.9 Anxiety disorder, unspecified; D72.829 Elevated white blood cell count, unspecified; E83.42 Hypomagnesemia
CPT/HCPCS: 96376 ×2; 96365; 96366; 96372 ×2; 96375 ×2; 97161; 97535; 97166; 64447; 80053; 83735; 85025; 83036; 73501; 27130; G0378 ×2; C1776; J2250; J1100; J0690 ×2; J2405; J3010; J1170 ×3; J2795; J1885; J2704; J2371